=== PATIENT | female | born 1985 | race Caucasian/White ===

== ENCOUNTER 2017-01-23 02:54 | Emergency (ER) | payer OTHER ==
[~2017-01-23] VITALS: Ht 170.2 cm; Wt 63.5 kg
[2017-01-23] MEDS ORDERED: INSU100V SQ (02:57)
[2017-01-23] MEDS ORDERED: LEVO88TA4 PO (02:57)
[2017-01-23 03:40] LABS: APPEARANCE,URINE TURBID (CLEAR); GLUCOSE, URINE (UA) 100 mg/dL (NEGATIVE); KETONES,URINE NEGATIVE (NEGATIVE); LEUKOCYTE ESTERASE ,URINE LARGE (NEGATIVE); OCCULT BLOOD,URINE LARGE (NEGATIVE); PROTEIN,URINE POS 1+ (NEGATIVE)
[2017-01-23 03:50] LABS: SQUAMOUS EPITHELIAL CELL,UR Few /LPF (None Seen); WBC,URINE >100 /HPF (0-5)
[2017-01-23] MEDS ORDERED: CEPHALEXIN MONOHYDRATE 500 MG CAPSULE PO ONE (04:30)
[2017-01-23] MEDS ORDERED: PHENAZOPYRIDINE HCL 100 MG TABLET PO ONE (04:30)
[2017-01-23] MEDS ORDERED: ONDANSETRON HCL 4 MG TABLET PO ONE (04:30)
[2017-01-23 04:35] VITALS: BP 130/85
== END 2017-01-23 04:38 | disposition home or self-care (01) ==
LOC: EMS 02:56
DX: N39.0 Urinary tract infection, site not specified (principal); I10 Essential (primary) hypertension; E06.3 Autoimmune thyroiditis; E10.65 Type 1 diabetes mellitus with hyperglycemia; E03.9 Hypothyroidism, unspecified; Z88.6 Allergy status to analgesic agent; Z88.2 Allergy status to sulfonamides; Z79.4 Long term (current) use of insulin
CPT/HCPCS: 81001; 82962; 87077; 87086; 87186; 99284; Q0162